=== PATIENT | male | born 1965 | race Caucasian/White ===

== ENCOUNTER 2019-06-28 03:45 | Emergency (ER) | payer SELFPAY ==
[~2019-06-28] VITALS: Ht 175.3 cm; Wt 63.6 kg
[2019-06-28 04:09] LABS: HEMATOCRIT 27.5 % (39.0-50.0); HEMOGLOBIN 9.1 g/dl (14.0-18.0); MEAN CELL VOLUME 113.6 fL CALC (80.0-100.0); MEAN CORPUSCULAR HGB 37.6 pG CALC (26.0-32.0); MEAN CORPUSCULAR HGB CONC 33.1 g/L CALC (32.0-36.0); RED BLOOD COUNT 2.42 mill/uL (4.70-6.10); RED CELL DISTRI WIDTH 14.2 % (11.5-15.5)
[2019-06-28 04:28] LABS: IMMATURE GRANULOCYTES 0.7 % (0.0-5.0); NEUT# 3.54 thou/uL (1.82-7.42)
[2019-06-28 04:29] LABS: ALBUMIN 4.3 g/dL (3.2-5.0); ALKALINE PHOSPHATASE 45 u/l (38-126); ANION GAP 29 (6-22 (CALC)); BILIRUBIN, TOTAL 1.3 mg/dL (0.0-1.4); BUN 31 mg/dL (9-20); BUN/CREATININE RATIO 25 (12-20 (CALC)); CARBON DIOXIDE 12 mmol/l (22-30); CHLORIDE 103 mmol/l (95-108); CREATININE 1.2 mg/dL (0.7-1.3); GFR > 60 ML/MIN (>=60 (CALC)); GFR FOR AFR.AMER. > 60 ML/MIN (>=60 (CALC)); POTASSIUM 3.6 mmol/l (3.5-5.1); SGOT/AST 57 u/l (17-59); SODIUM 141 mmol/l (137-146); TOTAL PROTEIN 7.4 g/dL (6.3-8.2)
[2019-06-28 04:59] LABS: MYOGLOBIN 731 ng/mL (0 - 121)
[2019-06-28 05:01] LABS: GFR 58 ML/MIN (>=60 (CALC)); GFR FOR AFR.AMER. > 60 ML/MIN (>=60 (CALC))
[2019-06-28 05:45] VITALS: BP 107/56
== END 2019-06-28 04:57 | disposition short-term general hospital (02) | DRG 100 ==
LOC: ED 03:45
PROVIDERS: Emergency Medicine
DX: G40.909 Epilepsy, unspecified, not intractable, without status epilepticus (principal); S06.5X0A Traumatic subdural hemorrhage without loss of consciousness, initial encounter; M62.82 Rhabdomyolysis; D69.6 Thrombocytopenia, unspecified; I95.9 Hypotension, unspecified; W06.XXXA Fall from bed, initial encounter; Y92.013 Bedroom of single-family (private) house as the place of occurrence of the external cause
CPT/HCPCS: J1953